=== PATIENT | male | born 1970 ===

== ENCOUNTER 2019-02-15 17:27 | Inpatient (IN) | payer OTHER ==
[~2019-02-15] VITALS: Ht 180.3 cm; Wt 79.4 kg
[2019-02-15 18:27] LABS: BASOPHILS ABSOLUTE AUTO 0.03 K/mm3 (0.00-0.23); BASOPHILS PERCENT AUTO 0 % (0-2); EOSINOPHILS PERCENT AUTO 0 % (0-6); Hematocrit 42.1 % (37.0-53.0); Hemoglobin 14.4 g/dL (13.5-17.5); IMMATURE GRAN ABSOLUTE AUTO 0.03 K/mm3 (0.00-0.10); IMMATURE GRAN PERCENT AUTO 0 % (0-1); LYMPHOCYTES ABSOLUTE AUTO 0.64 K/mm3 (0.84-5.20); LYMPHOCYTES PERCENT AUTO 7 % (21-46); MONOCYTES ABSOLUTE AUTO 0.76 K/mm3 (0.16-1.47); MONOCYTES PERCENT AUTO 9 % (4-13); Mean Corpuscular HGB 30.6 pg (26.0-34.0); Mean Corpuscular HGB Conc 34.2 g/dL (31.5-36.5); Mean Corpuscular Volume 90 fL (80-100); Mean Platelet Volume 8.8 fL (9.1-12.4); NEUTROPHILS ABSOLUTE AUTO 7.36 K/mm3 (1.96-9.15); NEUTROPHILS PERCENT AUTO 84 % (41-73); Platelet Count 200 K/mm3 (150-400); RDW Coefficient Variation 13.6 % (11.7-14.2); RDW Standard Deviation 44.7 fL (35.1-46.3); White Blood Cell Count 8.82 K/mm3 (4.00-11.30)
[2019-02-15 18:50] LABS: Alanine Aminotransfer (ALT/SGP 61 U/L (12-78); Albumin, Blood 3.4 g/dL (3.4-5.0); Albumin/Globulin Ratio 0.8 (0.8-1.8); Alk Phos 77 U/L (50-136); Anion Gap 5 mmol/L (6-16); Aspartate Aminotrans (AST/SGOT 25 U/L (12-37); Bilirubin, Total 0.5 mg/dL (0.1-1.0); Blood Urea Nitrogen 10 mg/dL (8-24); Bun/Creatinine Ratio 12.6 (12.0-20.0); CO2, Blood 24 mmol/L (21-32); CPK Creatine Kinase 82 U/L (39-308); Calcium, Blood 8.1 mg/dL (8.5-10.1); Chloride, Blood 101 mmol/L (98-108); Creatinine, Blood 0.79 mg/dL (0.60-1.20); Globulin, Blood 4.4 g/dL (2.2-4.0); Glomerular Filtration Rate >60 (60-); Glucose, Blood 112 mg/dL (70-99); Potassium, Blood 4.1 mmol/L (3.5-5.5); Sodium, Blood 130 mmol/L (136-145); Total Protein, Blood 7.8 g/dL (6.4-8.2)
[2019-02-15 20:59] LABS: Source, Urine Clean Catch
[2019-02-15 21:02] LABS: Appearance, Urine Clear (Clear); Bilirubin, Urine Neg (Neg); Blood, Urine 1+ (Neg); Glucose Qualitative, Urine Neg (Neg); Ketones, Urine Neg (Neg); Leukocyte Esterase, Urine 1+ (Neg); Nitrite, Urine Neg (Neg); Protein, Urine 2+ (Neg); Urobilinogen, Urine 2+ (Normal)
[2019-02-15 21:09] LABS: Color, Urine Yellow (P-Yellow)
[2019-02-15 21:10] LABS: Bacteria Few /hpf; Mucus Light (0-Heavy); Squamous Epithelial Cells Few /hpf (Few)
[2019-02-15 21:21] LABS: U Amphetamine Screen DETECTED; U Barbituate Screen Not Detected; U Benzodiazapine Screen Not Detected; U Cocaine Screen Not Detected; U Methadone Screen Not Detected; U Methamphetamine Screen DETECTED; U Opiates Screen Not Detected
[2019-02-15 21:22] LABS: U Buprenorphine Screen Not Detected; U Cannabinoids Screen DETECTED; U Oxycodone Screen Not Detected; U Phencyclidine Screen Not Detected; U Propoxyphene Screen Not Detected
[2019-02-15 21:23] LABS: Influenza A Negative (NEGATIVE); Influenza B Negative (NEGATIVE)
[2019-02-15 22:09] LABS: Glucose, CSF 62 mg/dL (40-70)
[2019-02-15 22:16] LABS: Appearance, CSF Clear (Clear); Color, CSF No Color (No Color); RBC Count, CSF 475 /mm3 (0-0); WBC Count, CSF 1 /mm3 (0-5)
[2019-02-15 23:05] LABS: Cryptococcus Neoformans/Gattii Not Detected (NOT DETECT); Enterovirus Not Detected (NOT DETECT); Escherichia Coli K1 Not Detected (NOT DETECT); Haemophilus Influenza Not Detected (NOT DETECT); Herpes Simplex Virus 1 Not Detected (NOT DETECT); Herpes Simplex Virus 2 Not Detected (NOT DETECT); Human Herpesvirus 6 Not Detected (NOT DETECT); Human Parechovirus Not Detected (NOT DETECT); Listeria Monocytogenes Not Detected (NOT DETECT); Neisseria Meningitidis Not Detected (NOT DETECT); Streptococcus Agalactiae Not Detected (NOT DETECT); Streptococcus Pneumoniae Not Detected (NOT DETECT); Varicella Zoster Virus Not Detected (NOT DETECT)
[2019-02-16 04:28] LABS: Anion Gap 9 mmol/L (6-16); Blood Urea Nitrogen 16 mg/dL (8-24); Bun/Creatinine Ratio 15.4 (12.0-20.0); CO2, Blood 25 mmol/L (21-32); Calcium, Blood 7.9 mg/dL (8.5-10.1); Chloride, Blood 101 mmol/L (98-108); Creatinine, Blood 1.04 mg/dL (0.60-1.20); Glomerular Filtration Rate >60 (60-); Glucose, Blood 98 mg/dL (70-99); Potassium, Blood 3.7 mmol/L (3.5-5.5); Sodium, Blood 135 mmol/L (136-145)
--- NOTE | 2019-02-16 07:28 | NUR ---
sleepy, but a+o when awake, call light in reach, walking rounds completed with day staff, saline locked, on room air
--- NOTE | 2019-02-16 10:23 | NUR ---
Echocardiogram completed.
--- NOTE | 2019-02-16 10:28 | NUR ---
NOTIFIED DR. ALVARADO PT'S 2ND BLOOD CULTURE CAME BACK GRAM POSITIVE COCCI IN CLUSTERS. NO NEW ORDERS AT THIS TIME.
--- NOTE | 2019-02-16 16:31 | NUR ---
NOTIFIED DR. ALVARADO PT'S BP 90/59. NOTIFIED DR. ALVARADO PT ASYMPTOMATIC AND IS STILL VERY SLEEPY. DR. ALVARADO SAID TO ORDER 500CC NS BOLUS AND THEN START PT ON NS AT 125ML/HR. NO OTHER NEW ORDERS AT THIS TIME.
--- NOTE | 2019-02-16 18:02 | NUR ---
SHIFT SUMMARY- PT SLEPT MOST OF THE MORNING AND AFTERNOON. PT AWAKE THIS PM. PT C/O HEADACHE. MEDS GIVEN PER EMAR. PT DENIES N/V. DENIES SOB. RESP E/U ON RA. INDEPENDENT IN THE ROOM. PT HAD ECHO TODAY. PT'S BP LOW THIS PM. DR. ALVARADO NOTIFIED. SEE PREVIOUS NOTE. WILL CONTINUE TO MONITOR. NO OTHER SIGNIFICANT CHANGES THIS SHIFT.
--- NOTE | 2019-02-17 05:32 | NUR ---
CYLINDER DIE MACHINE HELPER SUMMARY PT AAOX4, INDEPENDENT IN ROOM AND VERY PLEASANT. AFEBRILE THROUGH THE NIGHT. PT NOW ON MAINTENANCE FLUIDS AND HAS MAINTAINED SBP OVER 100. PT COMPLAINED OF SOME DISCOMFORT UNDER LEFT ARM PIT AND INTO L SHOULDER BLADE. INSTRUCTED PT GET UP AND MOVE AROUND THE ROOM. PT STATED THAT MOVING AROUND AND DOING SOME ROM WITH L ARM HELPED WITH THE PAIN. VSS, WILL CONTINUE TO MONITOR.
[2019-02-17 09:41] LABS: BASOPHILS ABSOLUTE AUTO 0.02 K/mm3 (0.00-0.23); BASOPHILS PERCENT AUTO 0 % (0-2); EOSINOPHILS ABSOLUTE AUTO 0.09 K/mm3 (0.00-0.68); EOSINOPHILS PERCENT AUTO 1 % (0-6); Hematocrit 37.3 % (37.0-53.0); Hemoglobin 12.6 g/dL (13.5-17.5); IMMATURE GRAN ABSOLUTE AUTO 0.03 K/mm3 (0.00-0.10); IMMATURE GRAN PERCENT AUTO 0 % (0-1); LYMPHOCYTES ABSOLUTE AUTO 1.33 K/mm3 (0.84-5.20); LYMPHOCYTES PERCENT AUTO 15 % (21-46); MONOCYTES ABSOLUTE AUTO 0.92 K/mm3 (0.16-1.47); MONOCYTES PERCENT AUTO 10 % (4-13); Mean Corpuscular HGB 30.6 pg (26.0-34.0); Mean Corpuscular HGB Conc 33.8 g/dL (31.5-36.5); Mean Corpuscular Volume 91 fL (80-100); NEUTROPHILS ABSOLUTE AUTO 6.62 K/mm3 (1.96-9.15); NEUTROPHILS PERCENT AUTO 74 % (41-73); Platelet Count 183 K/mm3 (150-400); RDW Coefficient Variation 14.3 % (11.7-14.2); RDW Standard Deviation 47.7 fL (35.1-46.3); Red Blood Cell Count 4.12 M/mm3 (4.30-5.90); White Blood Cell Count 9.01 K/mm3 (4.00-11.30)
[2019-02-17 09:59] LABS: Vancomycin, Trough 7.6 ug/mL (5.0-10.0)
[2019-02-17 10:01] LABS: Alanine Aminotransfer (ALT/SGP 50 U/L (12-78); Albumin, Blood 2.4 g/dL (3.4-5.0); Albumin/Globulin Ratio 0.7 (0.8-1.8); Alk Phos 78 U/L (50-136); Anion Gap 5 mmol/L (6-16); Aspartate Aminotrans (AST/SGOT 23 U/L (12-37); Bilirubin, Total 0.2 mg/dL (0.1-1.0); Blood Urea Nitrogen 26 mg/dL (8-24); Bun/Creatinine Ratio 31.6 (12.0-20.0); CO2, Blood 25 mmol/L (21-32); Calcium, Blood 7.7 mg/dL (8.5-10.1); Chloride, Blood 111 mmol/L (98-108); Creatinine, Blood 0.82 mg/dL (0.60-1.20); Globulin, Blood 3.6 g/dL (2.2-4.0); Glomerular Filtration Rate >60 (60-); Glucose, Blood 110 mg/dL (70-99); Potassium, Blood 4.2 mmol/L (3.5-5.5); Sodium, Blood 141 mmol/L (136-145)
[2019-02-17 10:28] LABS: HIV SCREEN 4TH GENERATION WRFX Non Reactive (Non Reactive)
--- NOTE | 2019-02-17 19:16 | NUR ---
SHIFT SUMMARY PATIENT REMAINS ALERT AND ORIENTED AND IN NO DISTRESS. HE HAS BEEN PLEASENT TODAY. HIS PAIN DID REACH AN 8/10 BUT WAS TREATED EFFECTIVELY WITH PHARMACOLOGICAL MEASURES. HIS CLOTHES HAVE BEEN WASHED AND ARE IN THE DRYER AT THIS TIME. HIS [facility] NURSE IS AWARE OF THIS.
[2019-02-18 03:10] LABS: HBSAG SCREEN Negative (Negative); HEP B CORE AB, TOT Positive (Negative); HEP C VIRUS AB >11.0 (0.0-0.9)
--- NOTE | 2019-02-18 05:59 | NUR ---
ENVIRONMENTAL SERVICES ASSISTANT SUMMARY NO ACUTE CHANGES THIS SHIFT. PT AAOX4 AND INDEPENDENT IN HIS ROOM. CONTINUED ON IV FLUIDS WELL ABX. PT STILL COMPLAINS OF SOME DISCOMFORT OF HIS LEFT SHOULDER/UPPER RIBS AREA BUT STATES THAT AFTER THE DOSE OF TORADOL HE RECIEVED DURING DAY SHIFT THE PAIN HAS BEEN VERY MINIMAL. PT HAS RESTED MAJORITY OF THE SHIFT. VSS, WILL CONTINUE TO MONITOR.
[2019-02-18 09:17] LABS: BASOPHILS ABSOLUTE AUTO 0.01 K/mm3 (0.00-0.23); BASOPHILS PERCENT AUTO 0 % (0-2); EOSINOPHILS ABSOLUTE AUTO 0.07 K/mm3 (0.00-0.68); EOSINOPHILS PERCENT AUTO 1 % (0-6); Hematocrit 36.7 % (37.0-53.0); Hemoglobin 11.9 g/dL (13.5-17.5); IMMATURE GRAN ABSOLUTE AUTO 0.04 K/mm3 (0.00-0.10); IMMATURE GRAN PERCENT AUTO 1 % (0-1); LYMPHOCYTES ABSOLUTE AUTO 1.43 K/mm3 (0.84-5.20); LYMPHOCYTES PERCENT AUTO 19 % (21-46); MONOCYTES PERCENT AUTO 5 % (4-13); Mean Corpuscular HGB 29.8 pg (26.0-34.0); Mean Corpuscular HGB Conc 32.4 g/dL (31.5-36.5); Mean Corpuscular Volume 92 fL (80-100); NEUTROPHILS PERCENT AUTO 74 % (41-73); Platelet Count 209 K/mm3 (150-400); RDW Coefficient Variation 14.6 % (11.7-14.2); RDW Standard Deviation 49.9 fL (35.1-46.3); White Blood Cell Count 7.55 K/mm3 (4.00-11.30)
[2019-02-18 09:29] LABS: Vancomycin, Trough 11.9 ug/mL (5.0-10.0)
[2019-02-18 09:31] LABS: Alanine Aminotransfer (ALT/SGP 47 U/L (12-78); Albumin, Blood 2.4 g/dL (3.4-5.0); Albumin/Globulin Ratio 0.6 (0.8-1.8); Alk Phos 71 U/L (50-136); Anion Gap 4 mmol/L (6-16); Aspartate Aminotrans (AST/SGOT 24 U/L (12-37); Bilirubin, Total 0.2 mg/dL (0.1-1.0); Blood Urea Nitrogen 16 mg/dL (8-24); Bun/Creatinine Ratio 22.3 (12.0-20.0); CO2, Blood 27 mmol/L (21-32); Calcium, Blood 7.9 mg/dL (8.5-10.1); Chloride, Blood 109 mmol/L (98-108); Creatinine, Blood 0.72 mg/dL (0.60-1.20); Globulin, Blood 3.8 g/dL (2.2-4.0); Glomerular Filtration Rate >60 (60-); Glucose, Blood 112 mg/dL (70-99); Potassium, Blood 4.1 mmol/L (3.5-5.5); Sodium, Blood 140 mmol/L (136-145); Total Protein, Blood 6.2 g/dL (6.4-8.2)
--- NOTE | 2019-02-18 18:34 | NUR ---
SHIFT SUMMARY GAURI RESTED COMFORTABLY TODAY. RECEIVED TYLENOL FOR SOME SHOULDER PAIN. DECLINED TORADOL, STATES HE FEELS MOSTLY BACK TO NORMAL. MIVF CONTINUED. TOOK MEDS PRESCRIBED. INDEPENDENT IN ROOM. CALL LIGHT IN REACH. TM
--- NOTE | 2019-02-19 05:57 | NUR ---
SHIFT SUMMARY PATIENT IS ALERT AND ORIENTED. PATIENT INDEPENDENT IN ROOM. PATIENT ON ROOM AIR. PATIENT SLEPT WELL THROUGHOUT THE NIGHT. NO NEW COMPLAINTS. VITALS STABLE.
--- NOTE | 2019-02-19 09:55 | NUR ---
PATIENT IS REFUSING CONTINUOUS FLUIDS.
[2019-02-19] MEDS ORDERED: CEPH500 PO (12:42)
--- NOTE | 2019-02-19 15:51 | NUR ---
DISCHARGE SUMMARY PATIENT A&O, INDEPENDENT. DENIES ANY PAIN, SOB, OR NAUSAEA. VSS. DISCHARGE INSTRUCTIONS REVIEWED WITH PATIENT. MEDICATIONS FAXED TO PHARMACY. PROPELLER MECHANIC COORDINATOR TO FOLLOW UP WITH PATIENT TO ESTABLISH PCP. IV D/C, WNL. PATIENT WALKED OUT WITH ALL BELONGINGS IN HAND.
== END 2019-02-19 13:38 | disposition home or self-care (01) | DRG 872 ==
LOC: ER 17:27 → MEDS 17:28
PROVIDERS: Emergency Medicine; Internal Medicine; Nurse Practitioner Acute Care; Pharmacist; Physician Assistant; ADMIT Hospitalist
PROC: 009U3ZX Drainage of Spinal Canal, Percutaneous Approach, Diagnostic (ICD-10-PCS; principal; 2019-02-16)
DX: A41.2 Sepsis due to unspecified staphylococcus (principal); E87.1 Hypo-osmolality and hyponatremia; R78.81 Bacteremia; F19.10 Other psychoactive substance abuse, uncomplicated; F15.10 Other stimulant abuse, uncomplicated; F17.210 Nicotine dependence, cigarettes, uncomplicated
CPT/HCPCS: 36415; 62270; 70450; 71046; 80048; 80053; 80202; 81001; 82550; 82945; 83605; 83615; 84145; 84157; 85025; 85651; 86140; 86317; 86403; 86592; 86704; 86708; 86803; 87040; 87070; 87077; 87086; 87147; 87186; 87205; 87340; 87389; 87483; 87804; 89051; 93306; 96374-59; 96375-59; 99285-25; G0480; J0696; J1650; J1885; J2543; J2550; J3010; J3370; J7030